=== PATIENT | female | born 1935 | race Two or more races ===

== ENCOUNTER 2022-03-11 08:43 | Emergency (ER) | payer OTHER ==
[~2022-03-11] VITALS: Ht 152.4 cm; Wt 49.9 kg
[2022-03-11] MEDS ORDERED: PLAVIX75 MG PO (09:33)
[2022-03-11] MEDS ORDERED: COZAAR50 MG PO (09:35)
[2022-03-11] MEDS ORDERED: LIPOFEN50 MG PO (09:35)
[2022-03-11] MEDS ORDERED: TOPROL XL50 M1 PO (09:36)
[2022-03-11] MEDS ORDERED: CRESTOR10 MG PO (09:37)
[2022-03-11] MEDS ORDERED: NORVASC5 MG PO (09:37)
[2022-03-11] MEDS ORDERED: METFORMIN HCL500 M3 PO (09:38)
[2022-03-11] MEDS ORDERED: OMEGA 3-6-9 11200 M1 PO (09:39)
== END 2022-03-12 00:15 | disposition home or self-care (01) ==
LOC: ER 08:43
DX: R10.11 Right upper quadrant pain (principal); K80.20 Calculus of gallbladder without cholecystitis without obstruction; R10.9 Unspecified abdominal pain; I10 Essential (primary) hypertension; E11.9 Type 2 diabetes mellitus without complications; Z20.822 Contact with and (suspected) exposure to COVID-19; Z88.1 Allergy status to other antibiotic agents